=== PATIENT | female | born 1950 | race Caucasian/White ===

== ENCOUNTER 2017-05-17 08:32 | Inpatient (IN) | payer OTHER ==
[2017-05-17] MEDS ORDERED: LIDOCAINE 1% 2 ML INJ ONE (08:59)
[2017-05-17] MEDS ORDERED: LIDOCAINE 1% 2 ML INJ ID PRN (09:04)
[2017-05-17] MEDS ORDERED: LR 1,000 ML IV ONE (09:04)
--- NOTE | 2017-05-17 09:28 | PDANEPAE ---
ANE History of Present Illness 66 year old female for C5/C6 ACDF with neuromonitoring. ANE Past Medical History - Cardiovascular History Hx Hypertension: Yes Hx Arrhythmias: Yes Hx Chest Pain: No Hx Coronary Artery / Peripheral Vascular Disease: No Hx CHF / Valvular Disease: No Hx Palpitations: No Cardiovascular History Comment: B pulmonary Emboli 2006. SVT 2002 - Pulmonary History Hx COPD: No Hx Asthma/Reactive Airway Disease: No Hx Recent Upper Respiratory Infection: No Hx Oxygen in Use at Home: No Hx Sleep Apnea: No Sleep Apnea Screening Result - Last Documented: Negative - Neurologic History Hx Cerebrovascular Accident: No Hx Seizures: No Hx Dementia: No - Endocrine History Hx Diabetes: No Hypothyroid: Yes Hyperthyroid: No - Renal History Hx Renal Disorders: No - Liver History Hx Hepatic Disorders: No - Neurological & Psychiatric Hx Hx Neurological and Psychiatric Disorders: Yes Neurological / Psychiatric History Comment: nerve pain lumbar back and right leg -Rx. B feet neuropathy -mild - Cancer History Hx Cancer: No - Congenital Disorder History Hx Congenital Disorders: No - GI History Hx Gastrointestinal Disorders: No - Other Health History Other Health History: OA - Chronic Pain History Chronic Pain: Yes - Surgical History Prior Surgeries: 2004 gastric volvulus repair. 2006 B TKA. 2010 hernia repair. lumbar lami. lumbar fusion ANE Review of Systems Review of systems is: negative Review of Systems: - Exercise capacity Exercise capacity: >=4 METS METS (RN): 4 METS ANE Patient History - Allergies Allergies/Adverse Reactions: cephalexin monohydrate [From Keflex] Allergy (Severe, Verified 03/19/15 11:38) Hives adhesive tape Allergy (Mild, Verified 05/16/17 10:08) Rash - Home Medications Home medications: home medication list seen and reviewed Home Medications: Naproxen Sodium [Aleve] 220 mg PO DAILY PRN 03/19/15 [Last Taken Unknown] Nebivolol HCl [Bystolic] 5 mg PO DAILY 03/19/15 [Last Taken 05/17/17] Potassium Cl [Klor-Con] 10 meq PO DAILY 03/19/15 [Last Taken Unknown] Ranitidine HCl [Zantac 75] 75 mg PO DAILY PRN 03/19/15 [Last Taken Unknown] fentaNYL [Duragesic] 50 mcg TD Q72H 03/19/15 [Last Taken Unknown] oxyCODONE HCL/ACETAMINOPHEN [Percocet 10-325 mg Tablet] 1 - 2 tab PO QID PRN 02/23 [Last Taken Unknown] Aspirin [Aspirin 81mg (*)] 81 mg PO DAILY 05/16/17 [Last Taken 05/10/17] DULoxetine [Cymbalta 60 MG (*)] 60 mg PO DAILY 05/16/17 [Last Taken Unknown] Levothyroxine [Synthroid 75 mcg (*)] 75 mcg PO DAILY06 05/16/17 [Last Taken Unknown] Lisinopril [Zestril 20 mg (*)] 20 mg PO DAILY 05/16/17 [Last Taken Unknown] - NPO status NPO Status: no food or drink >8 hours - Anes Hx Anes Hx: no prior problems - Smoking Hx Smoking Status: Never smoked Marijuana use: No - Alcohol Use Alcohol Use: Rarely - Family Anes Hx Family Anes Hx: neg - N/A Family Hx Anesthesia Complications: none ANE Labs/Vital Signs - Labs Result Diagrams: 05/17/17 09:22 05/17/17 09:22 - Vital Signs Vital Signs: reviewed preoperatively; see RN documention for details Height: 167.64 cm Weight: 83.007 kg ANE Physical Exam - Airway Neck exam: decreased ROM, increased neck circumference, short neck Mallampati Score: Class 3 Mouth exam: normal dental/mouth exam, abnormal chin - Pulmonary Pulmonary: no respiratory distress - Cardiovascular Cardiovascular: regular rate and rhythym - ASA Status ASA Status: III ANE Anesthesia Plan Anesthesia Plan: general endotracheal anesthesia (Combination of volatile anesthesia and intravenous anesthetic.) Lines/Monitors: arterial line (Possible arterial line), additional IV Total IV Anesthesia: No
[2017-05-17 09:30] LABS: % IMMATURE GRANULYOCYTES 0.2 % (0.0-1.1); ABSOLUTE IMMATURE GRANULOCYTES 0.02 10^3/uL (0.00-0.10); ADD DIFF? NO; ADD MORPH? NO; ADD SCAN? NO; ATYPICAL LYMPHOCYTE FLAG 0 (0-99); FRAGMENT RBC FLAG 0 (0-99); HEMATOCRIT 41.4 % (38.0-47.0); HEMOGLOBIN 13.6 g/dL (12.6-16.3); LEFT SHIFT FLG 0 (0-99); LIPEMIA HEMOLYSIS FLAG 80 (0-99); MEAN CELL HEMOGLOBIN 31.1 pg (27.9-34.1); MEAN CELL HEMOGLOBIN CONCENTR. 32.9 g/dL (32.4-36.7); MEAN CELL VOLUME 94.5 fL (81.5-99.8); MEAN PLATELET VOLUME 10.4 fL (8.7-11.7); PLATELET CLUMPS FLAG 20 (0-99); PLATELET COUNT 300 10^3/uL (150-400); RED BLOOD CELL COUNT 4.38 10^6/uL (4.18-5.33)
[2017-05-17] MEDS ORDERED: MIDAZOLAM 2 MG/2 ML VIAL IVP ONE (09:31)
[2017-05-17 09:52] LABS: ANION GAP 14 mEq/L (8-16); CALCIUM 9.8 mg/dL (8.5-10.4); CARBON DIOXIDE 24 mEq/l (22-31); CHLORIDE 106 mEq/L (97-110); CREATININE 1.1 mg/dL (0.6-1.0); GLOMERULAR FILTRATION RATE 49; GLUCOSE 100 mg/dL (70-100); POTASSIUM 4.2 mEq/L (3.5-5.2); SODIUM 144 mEq/L (134-144)
[2017-05-17] MEDS ORDERED: PROPOFOL/EMULSION 500 MG/50 ML BOTTLE IV ONE ×2 (09:59→13:01)
[2017-05-17] MEDS ORDERED: REMIFENTANIL HCL 1 MG VIAL ONE ×2 (09:59→13:01)
[2017-05-17] MEDS ORDERED: fentaNYL 100 MCG/2 ML INJ ONE ×3 (09:59→14:58)
[2017-05-17] MEDS ORDERED: PROPOFOL 200 MG/20 ML VIAL ONE (10:04)
[2017-05-17] MEDS ORDERED: THROMBIN (BOVINE) 5,000 UNIT VIAL TP ONE (10:05)
[2017-05-17] MEDS ORDERED: BUPIVACAINE 0.25% 30 ML SDV ONE (10:05)
[2017-05-17] MEDS ORDERED: BACITRACIN 50,000 UNITS/10 ML SYR IRR ONE (10:05)
[2017-05-17] MEDS ORDERED: CHLORHEXIDINE GLUC HIBICLENS 118 ML BTL TP ONE (10:05)
[2017-05-17] MEDS ORDERED: LIDOCAINE 2% 5 ML SDV ONE (10:10)
[2017-05-17] MEDS ORDERED: ROCURONIUM 50 MG/5 ML VIAL ONE (10:10)
[2017-05-17] MEDS ORDERED: SUCCINYLCHOLINE CHLORIDE*ANESTHESIA ONLY*200 MG/10 ML SYR IVP ONE (10:15)
[2017-05-17] MEDS ORDERED: DEXAMETHASONE 4 MG/ML VIAL ONE (10:15)
[2017-05-17] MEDS ORDERED: ONDANSETRON 4 MG/2 ML VIAL ONE (10:15)
[2017-05-17] MEDS ORDERED: VANCOMYCIN HCL/NORMAL SALINE 250 ML IV ONE (11:00)
[2017-05-17] MEDS ORDERED: MIDAZOLAM 2 MG/2 ML VIAL ONE (11:41)
[2017-05-17] MEDS ORDERED: BUPIVACAINE 0.5% 30 ML SDV ONE (12:01)
[2017-05-17] MEDS ORDERED: OXYCODONE/APAP 5/325 TAB PO PRN (13:24)
[2017-05-17] MEDS ORDERED: NALOXONE HCL 0.4 MG/ML INJ IVP PRN (13:24)
[2017-05-17] MEDS ORDERED: PHENYLEPHRINE HCL 100 MCG/ML SYR IVP PRN (13:24)
[2017-05-17] MEDS ORDERED: LR 500 ML IV PRN (13:24)
[2017-05-17] MEDS ORDERED: BISACODYL 10 MG SUPP PR PRN (14:07)
[2017-05-17] MEDS ORDERED: MAGNESIUM HYDROXIDE 30 ML UDCUP PO PRN (14:07)
[2017-05-17] MEDS ORDERED: diphenhydrAMINE 25 MG CAP PO PRN (14:07)
[2017-05-17] MEDS ORDERED: oxyCODONE IR 5 MG TAB PO PRN (14:07)
[2017-05-17] MEDS ORDERED: LACTULOSE 20 GM/30 ML UDCUP PO PRN (14:07)
[2017-05-17] MEDS ORDERED: ONDANSETRON 4 MG/2 ML VIAL IVP PRN (14:07)
[2017-05-17] MEDS ORDERED: ONDANSETRON DISINTEGRATING 4 MG TAB PO PRN (14:07)
[2017-05-17] MEDS ORDERED: NON-FORMULARY NEW DRUG (Ranitidine Hcl [Zantac 75] 75 MG) PO PRN (14:11)
[2017-05-17] MEDS ORDERED: HYDROmorphONE/DILAUDID 1 MG/ML INJ ONE ×2 (14:12→14:57)
[2017-05-17] MEDS: fentaNYL 100 MCG/2 ML INJ IVP PRN ×4 (14:15→15:16)
[2017-05-17] MEDS ORDERED: NS W/ 20 KCl/L 1,000 ML IV SCH (14:15)
--- NOTE | 2017-05-17 14:15 | SOAPPROG ---
ELIZABET Progress Note Assessment/Plan: Assessment: 66 yo F sp C5/6 ACDF Plan: stable to 3N hard collar to be fit by Prateek Aguiar please call with neuro changes 05/17/17 14:13 Subjective: + neck pain, no arm pain Objective: Vital Signs Temp Pulse Resp BP Pulse Ox 36.8 C 81 16 136/79 H 92 05/17/17 09:09 05/17/17 09:09 05/17/17 09:09 05/17/17 09:09 05/17/17 09:09 Laboratory Results 05/17/17 09:22 05/17/17 09:22 awake, alert PERRL, no facial droop 5/5 + light touch ICD10 Worksheet Patient Problems: Problems Problem Status Onset Fusion of spine of cervical region Acute - ICD10 Problem Qualifiers (1) Fusion of spine of cervical region
[2017-05-17] MEDS: HYDROmorphONE/DILAUDID 1 MG/ML INJ IVP PRN ×3 (14:20→15:10)
[2017-05-17] MEDS ORDERED: DIAZEPAM 10 MG/2 ML SYR ONE (14:25)
[2017-05-17] MEDS ORDERED: DIAZEPAM 10 MG/2 ML SYR IVP ONE (14:30)
--- NOTE | 2017-05-17 14:32 | GOP ---
[f rep st] OPERATIVE REPORT DATE OF OPERATION: 05/17/2017 SURGEON: Phillip Henry MD ANESTHESIA: General endotracheal. PREOPERATIVE DIAGNOSIS: 1. Severe C5-6 disk degeneration and herniation with central canal stenosis and spinal cord compress ion. 2. Progressive cervical spondylitic myelopathy. 3. Left upper extremity C6 radiculopathy. 4. Failed conservative care. POSTOPERATIVE DIAGNOSIS: 1. Severe C5-6 disk degeneration and herniation with central canal stenosis and spinal cord compress ion. 2. Progressive cervical spondylitic myelopathy. 3. Left upper extremity C6 radiculopathy. 4. Failed conservative care. PROCEDURE PERFORMED: 1. Mini open exposure for complete C5-6 anterior cervical diskectomy and arthrodesis with a [address] ructural PEEK interbody spacer, local autograft, and demineralized bone matrix. 2. Placement of a 21 mm LnK CastleLoc-P anterior cervical plate with self-drilling screws. 3. Use of intraoperative microscopy and fluoroscopy. FINDINGS: ESTIMATED BLOOD LOSS: 25 cc. INDICATIONS: The patient is a 66-year-old woman with myelopathic symptoms and left upper extremity r adiculopathy secondary to C6-7 disk degeneration and herniation with central canal stenosis and neura l foraminal impingement. She has failed conservative care and presents now for surgical decompressio n and stabilization through a mini open approach. DESCRIPTION OF PROCEDURE: After informed consent was obtained, patient was taken to the operative ro om and placed in a supine position. Baseline neuro monitoring potentials were obtained. The Halter retractor was then placed and the baseline reconfirmed. The anterior cervical region was then preppe d and draped in a sterile fashion. After fluoroscopic localization of the correct levels, angles, an d incisional approach, a horizontal incision was created at the level of C5-6 interspace. This was c arried through the platysmal layer using monopolar electrocautery and carried in the avascular plane between the sternocleidomastoid and carotid sheath laterally and the strap muscles, trachea, and esop hagus medially down to the prevertebral fascia, which was carefully incised with Metzenbaum scissors. The C5-6 interspace was identified and re-verified using intraoperative fluoroscopy. Following thi s, the distraction pins were inserted and under high-power microscopic visualization, complete C5-6 a nterior cervical diskectomy was performed with preparation of the endplates and removal of the osteop hytes, which were harvested for local autograft. The posterior longitudinal ligament was then remove d and bilateral foraminotomies were performed. Following extensive decompression of the central eddi l and neural foramen bilaterally, the wound was copiously irrigated and again, meticulous hemostasis was achieved. The remaining endplates were carefully prepared and an appropriately sized 10 mm struc tural PEEK interbody spacer packed with local autograft in the center along with demineralized bone m atrix, placed in the interspace under fluoroscopic image guidance. The distraction was removed an ap propriately sized 21-mm LnK CastleLoc-P anterior cervical plate was then placed and secured with self -drilling screws. Following re-verification of good position of the plate, screws, and interbody spa cer using biplanar fluoroscopy, the locking mechanisms were engaged. A drain was placed. The anteri or hole plate was gently packed with the residual demineralized bone matrix. The subcutaneous and in tramuscular tissues were re-infiltrated with the study drug, half of which was placed into the wound. The wound was then closed in a layered fashion using interrupted Vicryl sutures followed by Steri-S trips on the skin. Note that before closure of the skin, the remaining portion of the study drug was placed in the tissues. COMPLICATIONS: None. DISPOSITION: The patient is currently in the process of being repositioned for extubation . Note that this patient is part of the prospective randomized dysphagia trial. /[id number]/MODL
[2017-05-17] MEDS: ceFAZolin 2 GM/SWFI 2 GM/20 ML SYR IVP ONE ×2 (14:34→14:36)
[2017-05-17] MEDS ORDERED: FAMOTIDINE 20 MG TAB PO PRN (14:34)
[2017-05-17] MEDS: METHOCARBAMOL 750 MG TAB PO PRN ×2 (15:45→21:41)
[2017-05-17] MEDS: POLYETHYLENE GLYCOL 3350 17 GM PKT PO SCH ×2 (16:27→20:46)
[2017-05-17] MEDS: oxyCODONE IR 5 MG TAB PO PRN (20:44)
[2017-05-17] MEDS: SENNOSIDES/DOCUSATE SODIUM TAB PO SCH (20:45)
[2017-05-17] MEDS: morphINE SR 15 MG TAB PO SCH (20:45)
[2017-05-17] MEDS: FAMOTIDINE 20 MG TAB PO SCH (20:45)
--- NOTE | 2017-05-17 21:21 | POSTANESTH ---
Post Anesthetic Evaluation Cardiovascular Status: Normal, Stable, Similar to Pre-Op Cond Respiratory Status: Normal, Stable, Similar to Pre-op Cond. Level of Consciousness/Mental Status: Can Participate in Eval, Alert and Oriented Pain Control: Adequate, Prn Tx Ordered Nausea/Vomiting Control: Adequate, Prn Tx Ordered Complications Possibly Related to Anesthesia: None Noted
[2017-05-17] MEDS: ACETAMINOPHEN 500 MG TAB PO SCH (21:41)
[2017-05-18 04:23] VITALS: RESP 16
[2017-05-18] MEDS: ACETAMINOPHEN 500 MG TAB PO SCH (05:23)
[2017-05-18] MEDS: oxyCODONE IR 5 MG TAB PO PRN ×2 (05:24→11:03)
[2017-05-18] MEDS ORDERED: LEVOTHYROXINE 75 MCG TAB PO SCH (06:00)
[2017-05-18 07:30] VITALS: TEMP 97.7; O2SAT 96
--- NOTE | 2017-05-18 07:35 | NEUSURGPN ---
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 Leave in place for now and monitor output. D/w Dr Vasques. Post op xrays pending Hard collar, shower collar for showers Pain management - continue current regimen TEDs, SCDs, encourage ambulation. Dispo: Work towards DC today - pending clincal course D/w Dr Vasques Call NS with any questions or concerns Subjective: Pt resting at edge of bed. States she is swallowing ok. Pain better managed after adjustment of meds last PM by Dr Vasques. Objective: AAOx3 NAD VSS MAEx4 Motor 5/5 BUE Incision dressed cdi JPx1 - appx 25cc of serosanguineous dc in bulb +LT Urinary Catheter in Place: No - Physician Discussed Patient with : [facility] Physical Exam - Vitals, I&O, Labs I and O 05/17/17 05/18/17 05/19/17 05:59 05:59 05:59 Intake Total 1910 Output Total 1425 Balance 485 Weight 83.007 kg 83.007 kg Intake: Oral (ml) 10 IV Intake (ml) 1600 IV Infused (ml) 300 NS W/ 20 KCl/L 1,000 ml @ 300 75 mls/hr IV CONT MEENAKSHI Rx #:[id number] Output: Urine (ml) 1400 Toilet 1400 Estimated Blood Loss (ml) 20 ALEXANDRA Drain Output (ml) 5 Anterior Neck Compa 5 Alberto Other: Intake Quantity Yes Sufficient Number of Voids Toilet 1 Vital Signs Temp Pulse Resp BP Pulse Ox 36.5 C 91 16 146/86 H 96 05/18/17 07:30 05/18/17 07:30 05/18/17 07:30 05/18/17 07:30 05/18/17 07:30 Laboratory Results 05/17/17 09:22 05/17/17 09:22 ICD10 Worksheet Patient Problems: Problems Problem Status Onset Fusion of spine of cervical region Acute
[2017-05-18] MEDS ORDERED: POTASSIUM CL 10 MEQ TAB PO SCH (09:00)
[2017-05-18] MEDS ORDERED: LISINOPRIL 20 MG TAB PO SCH (09:00)
[2017-05-18] MEDS ORDERED: DULoxetine 60 MG CAP PO SCH (09:00)
[2017-05-18] MEDS ORDERED: NEBIVOLOL HCL 5 MG TAB PO SCH (09:00)
[2017-05-18] MEDS ORDERED: fentaNYL 50 MCG PATCH TD SCH (09:00)
[2017-05-18] MEDS: POLYETHYLENE GLYCOL 3350 17 GM PKT PO SCH (09:31)
[2017-05-18] MEDS: SENNOSIDES/DOCUSATE SODIUM TAB PO SCH (09:33)
[2017-05-18] MEDS: morphINE SR 15 MG TAB PO SCH (09:35)
[2017-05-18] MEDS: FAMOTIDINE 20 MG TAB PO SCH (09:35)
[2017-05-18 09:39] VITALS: BP 110/69; PULSE 89
[2017-05-18] MEDS ORDERED: VANCOMYCIN 1.25 GM in D5W 250 ML IV ONE (11:00)
[2017-05-18] MEDS: METHOCARBAMOL 750 MG TAB PO PRN (11:23)
--- NOTE | 2017-05-18 12:27 | ASMTCMCOM ---
CM Note CM Note Notes: OT/PT clear pt for home with support from spouse. Anticipate pt will d/c when medically stable. No CM d/c needs identified at this time. CM available for changes/needs. Date Signed: 05/18/2017 12:27 PM Electronically Signed By:CRISTINA Ackerman
--- NOTE | 2017-05-18 14:51 | ASDISCHSUM ---
Discharge Information Plan Status:Home with No Needs Medically Cleared to Leave: Discharge Date:05/18/2017 02:46 PM CM D/C Disposition:Home, Routine, Self-Care ADT D/C Disposition:Home, Routine, Self-Care Projected Discharge Date:05/18/2017 02:46 PM Transportation at D/C: Discharge Delay Reason: Follow-Up Date:05/18/2017 02:46 PM Discharge Slot: Final Diagnosis: Placement Information Patient Contact Information Contact Name:GEENA Relationship: Address:[address] [place] [address] City:[place] Alternate Phone: [facility]/Zip Code:[place] [address] Email: Financial Information Financial Class:Medicare Advantage Plans Primary Plan Desc:[facility] ADV[facility]AGE PLANS Primary Plan Number:[id number] Secondary Plan Desc: Secondary Plan Number: Assessment Information [facility] CM Progress Note CM Note CM Note Notes: OT/PT clear pt for home with support from spouse. Anticipate pt will d/c when medically stable. No CM d/c needs identified at this time. CM available for changes/needs. Date Signed: 05/18/2017 12:27 PM Electronically Signed By:CRISTINA Ackerman Intervention Information Intervention Type:*Incorrect Registration Date of Service:05/17/2017 02:57 PM Patient Type:Observation Staff Member:MYKEL Feliz Dina Hours: Discipline: Severity: Comment:
== END 2017-05-18 14:46 | disposition home or self-care (01) | DRG 472 ==
LOC: OBSVTOIN 08:32 → F3N 08:32
PROVIDERS: ADMIT Neurological Surgery; ATTEND Neurological Surgery
PROC: 0RB30ZZ Excision of Cervical Vertebral Disc, Open Approach (ICD-10-PCS; principal; 2017-05-17 10:45)
PROC: 0RG10AJ Fusion of Cervical Vertebral Joint with Interbody Fusion Device, Posterior Approach, Anterior Column, Open Approach (ICD-10-PCS; principal; 2017-05-17 10:45)
PROC: 3E0U0GB Introduction of Recombinant Bone Morphogenetic Protein into Joints, Open Approach (ICD-10-PCS; principal; 2017-05-17 10:45)
PROC: 01N10ZZ Release Cervical Nerve, Open Approach (ICD-10-PCS; principal; 2017-05-17 10:45)
DX: M48.02 Spinal stenosis, cervical region (principal); M50.022 Cervical disc disorder at C5-C6 level with myelopathy; M50.122 Cervical disc disorder at C5-C6 level with radiculopathy; Z98.1 Arthrodesis status; I10 Essential (primary) hypertension; E66.9 Obesity, unspecified; Z86.711 Personal history of pulmonary embolism
CPT/HCPCS: 97161-GP; 97165-GO; C1713; G8978-GP-CI; G8979-GP-CI; G8980-GP-CI; G8987-GO-CI; G8988-GO-CI; G8989-GO-CI; J0171; J0330; J1100; J1170; J2250; J2370; J2405; J2704; J3010; J3370